=== PATIENT | male | born 1970 | race Two or more races ===

== ENCOUNTER 2020-11-21 07:42 | Outpatient (CLI) | payer OTHER ==
[~2020-11-21 07:42] MED LIST: AMOX TR-K CLV 81 TAB; JENTADUETO
== END 2020-11-21 07:56 | disposition home or self-care (01) ==
LOC: TOM 07:42
PROVIDERS: ATTEND Surgery
DX: N20.0 Calculus of kidney (principal); Z12.11 Encounter for screening for malignant neoplasm of colon